=== PATIENT | female | born 1980 | race Caucasian/White ===

== ENCOUNTER → 2020-04-30 15:54 | Outpatient (CLI) | payer OTHER, SELFPAY ==
--- NOTE | 2020-04-30 15:56 | DI.US.S_ITS ---
PROCEDURE: US PELVIC COMPLETE INDICATIONS: R side pain TECHNIQUE: Real-time scanning was performed of the pelvic organs, with image documentation. Additional endovaginal scanning was necessary due to incomplete visualization of the adnexal and endometrial structures by transabdominal scanning. COMPARISON: None. FINDINGS: Transabdominal scanning: Limited scanning through the kidneys shows no hydronephrosis. No pathologic free abdominal or pelvic fluid. Endovaginal scanning: Uterus: Uterus is normal in size at 9.5 x 5.4 x 3.9 cm. The endometrium measures 3 mm in combined thickness. Note is made of an endometrial calcification on the right that measures 4 x 4 x 6 mm. Ovaries: The right ovary measures 2.4 x 1.7 x 1.8 cm. The left ovary measures 2.1 x 1.8 x 1.9 cm. The ovaries have a normal sonographic appearance. No adnexal masses are seen. Normal appearing arterial waveforms are confirmed to each ovary. IMPRESSION: The uterus measures near the upper limits of normal for size at 9.5 cm in length. Normal appearing ovaries, without findings of ovarian torsion or masses. No adnexal masses are seen on either side. Dictated by: Cody Robb M.D. on 04/30/2020 at 16:32 Approved by: Cody Robb M.D. on 04/30/2020 at 16:34
== END ==
PROVIDERS: Family Provider Family Medicine; PCP Family Medicine; Referring Provider Obstetrics & Gynecology; Visit Provider Obstetrics & Gynecology
DX: N83.202 Unspecified ovarian cyst, left side (principal); R10.2 Pelvic and perineal pain
CPT/HCPCS: 76830; 76856

== ENCOUNTER 2020-06-19 08:14 | Day surgery (SDC) | payer OTHER, SELFPAY ==
[2020-06-19] VITALS (17 sets, daily range): BP systolic 115–149; BP diastolic 62–98; PULSE 61–80; RESP 10–18; TEMP 35.9–37.2; O2SAT 92–100; BMI 38.5
--- NOTE | 2020-06-19 | PATH_ITS ---
[facility] Accession Number: [id number] . 01 Material submitted: . uterus - UTERUS, CERVIX, BILATERAL FALLOPIAN TUBES, LEFT OVARY . 01 Clinical history: . OPB . 02 Diagnosis: Uterus, Cervix, Bilateral Fallopian Tubes and Left Ovary, Hysterectomy, Bilateral Salpingectomy, and Left Oophorectomy (Weight 57 grams): Cervix with no significant histomorphologic abnormality. Endocervix with chronic inflammation and prominent nabothian gland cysts. Weakly proliferative endometrium; negative for glandular hyperplasia, cytologic atypia, or malignancy. Myometrium with multiple benign intramural leiomyomas (1-22 mm in greatest dimension). Serosal surface with partial disruption on the posterior surface, possibly due to a non-specific adhesion or mechanical instrumentation. Right and left fallopian tubes with no significant histomorphologic abnormality. Benign left ovary with multiple benign follicular and serous cysts (1-6 mm in greatest dimension) and with regions of stromal thecosis. V 06/24/2020 1406 Local . 02 Electronically signed: . Josselyn Brown MD, Pathologist NPI- [id number] . 01 Gross description: . The specimen is received in formalin, labeled uterus, cervix, bilateral fallopian tubes, and left ovary, and consists of a 57 g uterus, cervix, bilateral fallopian tubes, and left ovary. The specimen measures 8.5 cm from superior fundus to cervix by 4.0 cm from cornu to cornu by 3.2 cm from anterior to posterior. The serosa is roth-pink and smooth with focal areas of disruption along the posterior uterus. The roth-pink, wrinkled to smooth ectocervix that measures 3.0 x 2.5 cm and there is a 1.2 x 0.5 cm probe-patent os. The specimen is bivalved to reveal a roth-pink, herringbone endocervical mucosa. The endometrial cavity measures 3.5 x 1.5 cm and displays a roth-pink, glistening endometrium measuring 0.1 cm in thickness. the myometrium is orth-pink and trabeculated, measuring 1.7 cm in thickness. There are multiple roth-white, whorled leiomyomata ranging from 0.1 cm to 2.2 cm with no areas of hemorrhage, necrosis, or cystic degeneration. The left ovary measures 2.2 x 2.0 x 1.2 cm and displays a roth, smooth external surface. Sectioning reveals multiple roth, hemorrhagic to serous-filled cysts ranging from 0.1 cm to 0.6 cm with no papillary excrescences. The left fallopian tube measures 4.0 cm in length by 0.6 cm in diameter, and the right fallopian tube measures 3.5 cm in length by 0.6 cm in diameter. The serosa is pink-purple and smooth. Sectioning reveals a roth mucosa and a stellate lumen ranging from 0.1 cm to 0.4 cm. Archivist Economic History sections are submitted. A1: Anterior cervix. A2: Posterior cervix. A3: Anterior uterus. A4: Posterior uterus, full-thickness sections. A5-A7: Archivist Economic History leiomyomata. A8-A9: Archivist Economic History left ovary. A10: Left fallopian tube, district representative cross-sections and bisected fimbria. A11: Right fallopian tube, district representative cross-sections and bisected fimbria. ([id number]) /R 06/21/2020 1724 Local . 02 Pathologist provided ICD-10: R10.2, N83.209 . 02 CPT . 052523 Performed at: 01 [facility] [address] [place] [address], [place], [place] [id number] MD Alex Parks MD Phone: [phone] Performed at: 02 [facility] [address] [place] [id number] MD Марина Alejandre MD Phone: [phone]
[2020-06-19 08:45] LABS: Add Manual Diff / Slide Review NO; Basophils Absolute Auto 100 /uL (0-100); Basophils Percent Auto 1.2 % (0-2); Eosinophils Absolute Auto 100 /uL (0-450); Eosinophils Percent Auto 2.5 % (2-4); Hematocrit 40.5 % (36-46); Hemoglobin 13.1 g/dL (12.0-16.0); Lymphocytes Absolute Auto 1400 /uL (1100-4500); Lymphocytes Percent Auto 35.4 % (25-40); Mean Corpuscular HGB Conc 32.4 % (30-36); Mean Corpuscular Hemoglobin 27.7 PG (26-34); Mean Corpuscular Volume 85.4 fL (80-100); Monocytes Absolute Auto 400 /uL (0-900); Neutrophils Absolute Auto 2100 /uL (1500-7000); Neutrophils Percent Auto 51.9 % (50-75); Platelet Count 251 X10^3/uL (150-400); Red Blood Cell Count 4.74 X10^6/uL (4.0-5.2); Red Cell Distribution Width 14.5 % (11.6-14.8); White Blood Cell Count 4.1 X10^3/uL (4.5-11.0)
[2020-06-19 09:01] LABS: COVID19 -Nasal RAPID Negative (Negative)
[2020-06-19] MEDS: LACTATED RINGERS 1,000 ML 42 ML IV ×2 (09:32→12:25)
--- NOTE | 2020-06-19 09:55 | PM.PREOP ---
Pre-operative Note COVID-19 COVID-19 status: Negative Result date/Date tested (Pos, Neg/Pending): 06/19/20 Interval Note History & Physical reviewed/Exam performed by Physician: Yes Changes to H&P: No
[2020-06-19] MEDS: CEFAZOLIN 2 GM/100 ML FROZ.PIGGY IV (10:15)
--- NOTE | 2020-06-19 11:03 | SUR.OPER ---
Lithotomy on padded OR bed. [place] Pad Positioner under torso. Head on pillow, arms padded and tucked at sides. Legs secured in padded yellow fins stirrups.
[2020-06-19] MEDS: BUPIVACAINE 0.5% W/ EPI (PF) 30 ML VIAL INJ (11:19)
--- NOTE | 2020-06-19 12:55 | SUR.PHASEI ---
Given report to Cris White RN.
[2020-06-19] MEDS: ONDANSETRON 4 MG/2 ML INJ IV (13:03)
[2020-06-19] MEDS: fentaNYL 100 MCG/2 ML INJ IV (13:03)
[2020-06-19] MEDS: OXYCODONE/ACETAMINOPHEN 5/325 TABLET 1 TAB PO (13:04)
--- NOTE | 2020-06-19 13:23 | PM.OP.1 ---
Operative Date/Time/Diagnoses Date of procedure: 06/19/20 Time of procedure: 10:30 Pre-op diagnosis: Recurrent left ovarian cyst, abnormal uterine bleeding Post-op diagnosis: same Procedure & Clinicians Procedure: Laparoscopically assisted vaginal hysterectomy, bilateral salpingectomy, left oophorectomy, significant lysis of adhesions Same procedure as scheduled: Yes Indications: Abnormal uterine bleeding, recurrent left ovarian cyst, desire for definitive management Surgeon: Paloma Anguiano Fire Control Technician G: Lois Alford Anesthesia Type: General Operative Notes Findings: Normal ovaries, tubes, uterus. Normal vulva and vagina. Significant scar tissue between bladder and lower anterior uterine segment. Closure Type: primary Specimen(s): other (Uterus, tubes, cervix, left ovaries) Estimated Blood Loss (mL): 200 Procedure in detail: Prior to the case, the option for supracervical hysterectomy given her history of normal Pap smears was discussed and the patient reiterated that she strongly desired removal of her cervix. After proper consents were obtained, the patient was taken to the operating room. General anesthesia was induced, and she was placed in the dorsal lithotomy position and prepped and draped in the normal sterile fashion. A garcia catheter was placed, and a speculum placed in the patient's vagina. A single tooth tenaculum was applied to the anterior lip of the cervix, and hegar dilators used to dilate the cervix to 6mm with gentle pressure. A uterine manipulator was gently inserted and the balloon inflated to 5ccs. The tenaculum and speculum were removed from the vagina. Attention was then turned to the abdomen, where 1cc of .25% marcaine with epinephrine was used to infiltrate the skin just below the umbilicus. A scalpel was used to make a 5mm incision, the anterior abdominal wall was elevated, and a Veress needle gently inserted into the abdomen. Intraperitoneal placement was confirmed with a drop of normal saline passed through the veress needle with gravity, and CO2 used to insufflate the abdomen to 15mmHg. A 5mm trocar and sleeve were placed into the abdomen through this incision,and intraperitoneal placement was confirmed visually with insertion of the laparoscope. Abdominal survey at this time was normal, and lateral ports were placed under direct visualization. These were placed on the left and right, 8cm from the umbilicus and after infiltration of 1mm of local anesthetic as above. The patient was placed in trendelenburg position, and a blunt probe used to gently push the bowel out of the pelvis. The ovaries and fallopian tube remnants appeared normal bilaterally. A significant amount of scar tissue between the anterior abdominal wall and the lower uterine segment was noted. This was carefully dissected, largely with gentle traction and Endo Dante where necessary, without using cautery. Significant reduction of the scar tissue was achieved. An atraumatic grasper was used to elevate the right fallopian tube, and a PK device was used to cauterize and cut along the mesosalpinx. The uteroovarian ligament and round ligaments were then cauterized and transected with this device, the anterior and posterior leaflets of the broad ligament and skeletonized. Attention was then turned to the patient's left side. The left side was notable for a broad ligament fibroid just adjacent to the fundus of the uterus. The left ovary was elevated, and the infundibulopelvic ligament cauterized and cut just lateral to the ovary with the PK device. The round ligament was then cauterized and transected, taking care to include the above-noted fibroid. The broad ligament was in skeletonized, and as the uterine artery was prominent and easily visualized, this was cauterized. After careful survey revealed no active bleeding, the tools and camera were removed from the abdomen, the CO2 gas allowed to escape, and the abdominal ports were covered with a clean drape. Attention was then turned to the vaginal portion of the surgery. A weighted speculum was inserted into the vagina, and the cervix grasped with a double tooth tenaculum. 0.5% lidocaine with epinephrine was injected circumferentially into the vaginal mucosa, using a total of 10 cc. A scalpel was made to make a circumferential incision, and the bladder dissected off the pubovesical cervical fascia anteriorly with a moist Ray-Molly and gentle traction. The same procedure was performed posteriorly. The posterior cul-de-sac was entered sharply with Metzenbaum scissors, the weighted speculum placed into the posterior cul-de-sac. A right angle retractor was used to displace the bladder anteriorly. A Lamont clamp was placed over the uterus sacral ligaments on either side, these were transected, and suture ligated with 0 Vicryl. Hemostasis was assured. Uterine arteries were then clamped with Lamont clamps, transected, and suture ligated on both sides. This point, the peritoneal fold was identified anteriorly, and anterior cul-de-sac entered sharply with Metzenbaum scissors and gentle traction. Right angle retractor was used to continue to displace the bladder anteriorly. The remaining broad ligament was clamped on both sides with a Lamont clamp, transected, and suture ligated. The uterus was then able to be delivered. The pedicles were inspected and found to be hemostatic. Throughout, a moderate amount of scar tissue was noted anteriorly though above the plane using for dissection, and the patient's narrow pelvis impacted visualization the good visualization was achieved prior to clamping and transection at any point. The peritoneum was closed with a pursestring suture of 2 0 Vicryl. The vaginal cuff was closed in a running locked fashion with 0 Vicryl in a anterior to posterior fashion, incorporating the uterosacral ligaments when feasible. Careful inspection for hemostasis was performed throughout, and hemostasis achieved where necessary with either the Bovie or incorporation into suture. Attention was then returned to the abdomen, and the abdomen re-insufflated. Careful inspection from above revealed hemostasis both operative sites, and otherwise normal abdominal survey. Given the degree of dissection of the anterior abdominal wall and bladder from the anterior wall the uterus, a cystoscopy was performed. Due to the 0 degree scope available, the urethral orifices could not be visualized bilaterally, but copious jets of clear urine were visualized. No bladder injury was identified. The patient tolerated the procedure well, and 2 g of Ancef were given at the commencement of the case. test was negative at the beginning of the case. The patient was taken to the PACU in stable condition. Dr. Alford was present throughout the case, and her assistance was integral to performance of the case and retraction. IVF: 1400 cc LR UOP: 500 cc clear urine EBL: 200 cc, largely during vaginal portion Complications: none Post-operative Condition: stable Disposition: PACU Plan for aftercare: Transfer to acute care floor for routine postoperative protocol
[2020-06-19] MEDS: OXYCODONE IR 5 MG TABLET PO ×2 (13:28→23:52)
[2020-06-19] MEDS: ACETAMINOPHEN 325 MG TABLET 650 MG PO (17:48)
[2020-06-19] MEDS: LACTATED RINGERS 1,000 ML 100 ML IV (17:50)
[2020-06-19] MEDS: KETOROLAC 30 MG/ML VIAL IV (22:23)
[2020-06-20 03:40] VITALS: BP 150/94; PULSE 67; RESP 18; TEMP 36.6; O2SAT 99
[2020-06-20] MEDS: OXYCODONE IR 5 MG TABLET PO ×2 (04:37→11:08)
[2020-06-20] MEDS: LACTATED RINGERS 1,000 ML 100 ML IV (04:39)
[2020-06-20] MEDS: LEVOTHYROXINE 125 MCG TABLET PO (06:14)
--- NOTE | 2020-06-20 06:35 | PC.NURSE ---
0630 Garcia & packing discontinued, garcia cath. intact no vaginal bleeding noted. Denies any pain this morning. Will cont. POC & monitor.
[2020-06-20 07:56] VITALS: BP 131/86; PULSE 69; RESP 18; TEMP 36.9; O2SAT 98
[2020-06-20] MEDS: DOCUSATE 250 MG CAPSULE PO (09:26)
[2020-06-20] MEDS: PROPRANOLOL 10 MG TABLET PO (09:26)
[2020-06-20] MEDS: ACETAMINOPHEN 325 MG TABLET 650 MG PO (09:27)
[2020-06-20 09:40] LABS: Add Manual Diff / Slide Review NO; Basophils Absolute Auto 0 /uL (0-100); Basophils Percent Auto 0.3 % (0-2); Eosinophils Absolute Auto 0 /uL (0-450); Eosinophils Percent Auto 0.1 % (2-4); Hemoglobin 11.7 g/dL (12.0-16.0); Lymphocytes Absolute Auto 1900 /uL (1100-4500); Lymphocytes Percent Auto 22.2 % (25-40); Mean Corpuscular HGB Conc 32.4 % (30-36); Mean Corpuscular Hemoglobin 27.6 PG (26-34); Mean Corpuscular Volume 85.3 fL (80-100); Monocytes Absolute Auto 500 /uL (0-900); Monocytes Percent Auto 5.9 % (3-14); Neutrophils Absolute Auto 6100 /uL (1500-7000); Neutrophils Percent Auto 71.5 % (50-75); Platelet Count 232 X10^3/uL (150-400); Red Blood Cell Count 4.22 X10^6/uL (4.0-5.2); Red Cell Distribution Width 14.6 % (11.6-14.8); White Blood Cell Count 8.5 X10^3/uL (4.5-11.0)
[2020-06-20 09:50] LABS: BUN Creatinine Ratio 8.6 (6-22); Blood Urea Nitrogen 6 mg/dL (7-17); Calcium 8.8 mg/dL (8.4-10.2); Carbon Dioxide 27 mmol/L (22-32); Chloride 106 mmol/L (98-107); Estimated Glomerular Filt Rate > 60.0 mL/min (>60); Glucose 149 mg/dL (70-100); HEMOLYSIS < 15 (0-50); Potassium 3.8 mmol/L (3.4-5.1); Sodium 138 mmol/L (137-145)
--- NOTE | 2020-06-20 12:26 | PC.NURSE ---
Addendum entered by Shira Mccann R.N. 06/20/20 15:24: Patients IV removed, patient tolerated. Patient educated on f/u appointments, s/s of infection, and medication. Patient verbalized understanding. Patient discharge via wheelchair with aide assist. Original Note: Patient resting in bed, c/o 4-6 depending on movement in LLQ. Dressings remain CDI x 3. Patient up to void post garcia removal, 250 mls out, clear, yellow urine. Patient ambulating independently. No vaginal bleeding noted. Patient denies SOB, dizziness or lightheadedness. Patient remains afebrile. No concerns at this time. MD notified of urine output. Call light in reach.
--- NOTE | 2020-06-20 13:33 | CM.DANOTE ---
Discharge Planning/Care Management DCP: assessment: case received, EMR reviewed and met with pt. Introduced self and role. Pt is found dressed and waiting for her Aunt Marifer Amor to arrive. She says they have decided to stay another night at the [facility] in [place] rather than returning immediately to [place]. She says Dr. Anguiano is very much in favor of this also. Payer: Perry JACK Admitted for scheduled gynecological procedure yesterday. DC today as per above. CM Discharge Assessment Start: 06/20/20 13:32 Freq: Status: Active Protocol: Document 06/20/20 13:33 ITV (Rec: 06/20/20 13:33 IT [id number]) Discharge Planning Assessment Advance Directives? No History Provided By Patient,Medical Record Prior Living Arrangements House Household Members children Independent with ADL's Yes Is patient alert and oriented? 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
--- NOTE | 2020-06-20 17:30 | PM.DS.1 ---
History of Present Illness History of Present Illness Date Patient Seen: 06/20/20 Time Patient Seen: 09:11 Chief complaint: OPB Narrative: This patient is a 40-year-old para 1 admitted for scheduled laparoscopically assisted vaginal hysterectomy, bilateral salpingectomy, and left oophorectomy. The patient's surgery was uncomplicated, on postop day 1 she was meeting postoperative goals including ambulating, good pain control with p.o., voiding, passing flatus, tolerating p.o. intake. Patient had no other complaints or concerns. She was discharged on the afternoon of postop day 1. Discharge Providers Provider Discharge Date: 06/20/20 Primary care physician: PARESH Camargo Discharge provider: Paloma Anguiano MD Summary Hospital Course Discharge Diagnosis: Status post uncomplicated laparoscopically assisted vaginal hysterectomy. Hospital Course: The patient was admitted for scheduled hysterectomy, which was uncomplicated. She met postoperative goals appropriately and was discharged on postop day 1. Status at Discharge Cognitive/behavioral status at discharge: oriented Functional status at discharge: independent ambulation Overall status at discharge: patient is progressing back to baseline Time Spent with Patient Time spent: Greater than 30 minutes Exam Vital Signs (past 8 hours): Oxygen Delivery Method Room Air Oxygen Flow Rate 0 Const General: cooperative, healthy appearing and comfortable Resp Effort & Inspection: normal respiratory effort Auscultation: clear to auscultation bilaterally Cardio Rate: regular rate Rhythm: regular rhythm GI Palpation: soft and No tender Skin General: no rashes or lesions noted Extrem General: normal to inspection Objective Labs Result Diagrams: 06/20/20 09:30 06/20/20 09:30 Labs: Laboratory Results - last 24 hr 06/20/20 06/20/20 09:30 09:30 WBC 8.5 D RBC 4.22 Hgb 11.7 L Hct 36.0 MCV 85.3 MCH 27.6 MCHC 32.4 RDW 14.6 Plt Count 232 Neut % (Auto) 71.5 Lymph % (Auto) 22.2 L [place] % (Auto) 5.9 Eos % (Auto) 0.1 L Baso % (Auto) 0.3 Neut # (Auto) 6100 Lymph # (Auto) 1900 [place] # (Auto) 500 Eos # (Auto) 0 Baso # (Auto) 0 Sodium 138 Potassium 3.8 Chloride 106 Carbon Dioxide 27 BUN 6 L Creatinine 0.70 Estimated GFR > 60.0 BUN/Creatinine Ratio 8.6 Glucose 149 H Calcium 8.8 PFSH Surgical History History of third molar tooth extraction Status post delivery (06/04/15) Status post hernia repair Social History household members: children Smoking Status: Never smoker Discharge Assessment & Plan Assessment and Plan Assessment: This patient is status post uncomplicated hysterectomy. Plan of Treatment: Discharge home with routine precautions. Discharge Plan Discharge Plan Patient Disposition: Home Discharge orders & Medications Discharge Orders: Discharge (Order); Ordered 06/20/20 Ordered By: Paloma Anguiano Prescriptions: New oxycodone 5 mg tablet 5 mg PO Q6H PRN (Reason: pain) Qty: 14 RF: 0 ibuprofen 600 mg tablet 600 mg PO Q6H PRN (Reason: pain) Qty: 20 RF: 0 acetaminophen 325 mg capsule 650 mg PO Q6H PRN (Reason: pain) Qty: 20 RF: 0 Continued norethindrone ac-eth estradiol [Loestrin 1.5/30 ()] 1.5 MG/30 MCG tablet 1 tab PO DAILY Qty: 4 RF: 4 propranolol 10 mg tablet 10 mg PO .qd RF: 0 omeprazole 20 mg capsule,delayed release(DR/EC) 20 mg PO BID RF: 0 levothyroxine 150 mcg tablet 125 mcg PO QDAY RF: 0 Follow up/Referrals: Madyson Bullock ARNP [Primary Care Provider] - Paloma Anguiano MD [Physician] - 2 Weeks (postop ) Diet/Activity/Treatments Diet: Regular Activity: Nothing in the vagina for 8 weeks. Avoid lifting more than 10 pounds for 6 weeks. If you have increasing bleeding, fevers, chills, nausea, vomiting, chest pain or trouble breathing, abdominal pain, or any other concerning symptoms, call the clinic or come to the emergency room. Skin/Wound/Dressing Care Report to your healthcare provider any signs of infection, such as:: chills, fever, night sweats, increased pain, unusual drainage and unusual redness Visit Report/Discharge Packet Instructions: DI for Hysterectomy, DI for Laparoscopy Stand Alone Forms: Surgery Discharge Discharge Data Primary Care Provider: Madyson Bullock Attending Provider: Paloma Anguiano Quality VTE Deep Vein Thrombosis/Pulmonary Embolism Present on Admission: No
== END 2020-06-20 14:45 | disposition home or self-care (01) ==
LOC: OR 08:14 → AC 13:19
PROVIDERS: Family Provider Family Medicine; PCP Nurse Practitioner Family; Referring Provider Obstetrics & Gynecology; Visit Provider Obstetrics & Gynecology
PROC: 0UT9FZZ Resection of Uterus, Via Natural or Artificial Opening With Percutaneous Endoscopic Assistance (ICD-10-PCS; CPT 58552; principal; 2020-06-19 09:45)
DX: N83.02 Follicular cyst of left ovary (principal); N93.9 Abnormal uterine and vaginal bleeding, unspecified; E66.9 Obesity, unspecified; N73.6 Female pelvic peritoneal adhesions (postinfective); Z20.822 Contact with and (suspected) exposure to COVID-19; N88.8 Other specified noninflammatory disorders of cervix uteri; N72 Inflammatory disease of cervix uteri; D25.1 Intramural leiomyoma of uterus
CPT/HCPCS: 58552; 36415; 80048; 81025; 85025; 86850; 86900; 86901; 87635; J0690; J1100; J1170; J1885; J2250; J2405; J2704; J3010

== ENCOUNTER → 2024-05-10 10:29 | Outpatient (CLI) | payer BC, SELFPAY ==
[2020-06-19 14:02] VITALS: BMI 38.5
== END ==
LOC: PHYS 10:32
PROVIDERS: Family Provider Family Medicine; PCP Physician Assistant; Referring Provider Orthopaedic Surgery; Visit Provider Orthopaedic Surgery
DX: R20.2 Paresthesia of skin (principal); R20.0 Anesthesia of skin; G56.22 Lesion of ulnar nerve, left upper limb; G56.01 Carpal tunnel syndrome, right upper limb
CPT/HCPCS: 95886; 95912